=== PATIENT | male | born 1955 | race Caucasian/White ===

== ENCOUNTER 2024-10-06 02:39 | Emergency (ER) | payer MEDICARE, OTHER, SELFPAY ==
[2024-10-06] VITALS (7 sets, daily range): BP systolic 125–184; BP diastolic 75–84; PULSE 108–120; RESP 14–22; TEMP 36.5; O2SAT 94–99
--- NOTE | ~2024-10-06 | CT_ITS ---
Clinical Indication: Shortness of breath CT Scan of the Chest with Contrast: Technique: Contiguous sections were acquired throughout the chest after intravenous administration of 175 cc of Omnipaque 350. Dose reduction technique was used on this scan by utilizing automated expos ure control and iterative reconstruction technique. The dose-length product (DLP) was 426.31 mGy-cm. Findings: At the level of the thyroid cartilage/vocal cords, there is apparent soft tissue mass parti ally filling the trachea, near complete occlusion. Lesion measures approximately 2.4 x 2.0 cm in dalal sverse dimensions, and 4.1 cm in craniocaudal extent (axial images [id number], sagittal image 83 for exampl e). There is no evidence of any significant mediastinal, hilar or axillary lymphadenopathy. There is no f illing defect in the pulmonary arterial tree to suggest pulmonary embolus. There is no evidence of ao rtic dissection or aneurysm. There is no evidence of pleural or pericardial effusion. There is severe emphysema. No pulmonary nodule or consolidation seen. Images through the upper abdomen reveal large duodenal diverticulum. Possible diffuse hepatic steatos is. Impression: 2.4 x 2.0 x 4.1 cm soft tissue mass nearly completely occluding the trachea at the level of the thyro id cartilage/vocal cords, suspicious for malignancy. Direct inspection/tissue sampling advised. No evidence of pulmonary embolus, aortic dissection, or aortic aneurysm. Severe emphysema. No pulmonary nodule or consolidation. Reviewed, dictated and finalized at [facility]. Impression: 2.4 x 2.0 x 4.1 cm soft tissue mass nearly completely occluding the trachea at the level of the thyroid cartilage/vocal cords, suspicious for malignancy. Dire ct inspection/tissue sampling advised. No evidence of pulmonary embolus, aortic dissection, or aortic aneurysm. Severe emphysema. No pulmonary nodule or consolidation.
--- NOTE | ~2024-10-06 | XR_ITS ---
Portable chest x-ray Comparison: None Clinical History: Dyspnea Findings: COPD pattern of the lungs is present. No consolidation or pleural effusion evident. Cardi omediastinal silhouette is stable. Bones and soft tissues are unremarkable. Impression: COPD. Reviewed, dictated and finalized at location . Impression: COPD.
--- NOTE | ~2024-10-06 | CT_ITS ---
CT scan of the Neck Technique: 2.5 mm axial scans were obtained through the neck after intravenous administration of 175 cc Omnipaque 350. Coronal and sagittal reconstructions of the neck were obtained. Dose reduction tech nique was used on this scan by utilizing automated exposure control and iterative reconstruction tech nique. The dose-length product (DLP) was 448.71 mGy-cm. Clinical History: Shortness of breath Findings: At the level of the thyroid cartilage/vocal cords, there is a soft tissue mass largely fill ing the trachea with near complete occlusion, measuring approximately 2.5 2.1 x 4.0 cm in extent (axi al images 74-80). There is no evidence of any significant cervical lymphadenopathy. Several small, nonenlarged jugulo- digastric and posterior cervical lymph nodes are noted bilaterally. Parapharyngeal spaces appear norm al bilaterally. The parotid and submandibular glands appear normal. The thyroid gland appears normal. Images of the lung apices reveal severe emphysema. Impression: Laryngeal/tracheal soft tissue mass at the level of the thyroid cartilage/vocal cords, as detailed ab ove, nearly completely filling/occluding the trachea. This is suspicious for malignancy. Direct inspe ction/tissue sampling advised. Airway management would likely be of clinical concern. Reviewed, dictated and finalized at location . Impression: Laryngeal/tracheal soft tissue mass at the level of the thyroid cartilage/vocal cords, as detailed above, nearly completely filling/occluding the trachea. Thi s is suspicious for malignancy. Direct inspection/tissue sampling advised. Airw ay management would likely be of clinical concern.
--- NOTE | 2024-10-06 02:47 | ECG_ITS ---
Test Date: 2024-10-06 02:54:11 Measurements Intervals [place] Rate: 112 P: 0 VT: 0 QRS: 74 QRSD: 92 T: 82 QT: 299 QTc: 410 Interpretive Statements SINUS TACHYCARDIA INDETERMINATE AXIS SEPTAL MYOCARDIAL INFARCTION , OF INDETERMINATE AGE [40+ ms Q WAVE IN V1/V2] SI NONSPECIFIC ST AND T-WAVE ABNORMALITY ABNORMAL ECG Electronically Signed On 10-06-2024 12:25:41 CDT by Jensen Turk M.D.
[2024-10-06 02:58] LABS: Basophils Absolute Auto 0.1 K/mm3 (0.0-0.1); Basophils Percent Auto 0.7 % (0.2-1.2); Eosinophils Absolute Auto 0.1 K/mm3 (0-0.3); Eosinophils Percent Auto 0.9 % (0-4.4); Hematocrit 48.4 % (42.0-52.0); Hemoglobin 16.4 g/dL (14.0-18.0); Immature Granulocyte Absolute 0.04 K/mm3 (0.00-0.031); Immature Granulocyte Percent A 0.5 % (0-0.5); Immature Platelet Fraction Pct 2.9 % (0.9-11.2); Lymphocytes Absolute Auto 2.33 K/mm3 (0.9-3.2); Lymphocytes Percent Auto 31.1 % (18.3-44.2); Mean Corpuscular HGB Conc 33.9 g/dl (32-36); Mean Corpuscular Hemoglobin 30.5 pg (26-34); Monocytes Absolute Auto 0.6 K/mm3 (0.1-0.6); Monocytes Percent Auto 8.3 % (2.6-8.5); Neutrophils Absolute Auto 4.4 K/mm3 (1.3-6.7); Neutrophils Percent Auto 58.5 % (45.5-73.1); Platelet Count Result 129 k/mm3 (150-375); Red Blood Count 5.38 M/mm3 (4.6-6.20); Red Cell Distribution Width 14.2 % (11.5-14.5); White Blood Count 7.5 K/mm3 (4.5-10.0)
[2024-10-06] MEDS: methylPREDNISolone SOD SUCC 125 MG VIAL IV PUSH (03:01)
[2024-10-06 03:06] LABS: Alanine Aminotransferase 28 U/L (6-50); Albumin Level 4.2 g/dL (3.5-5.1); Alkaline Phosphatase 132 U/L (38-126); Anion Gap 10 mmol/L (4-12); Aspartate Amino Transferase 39 U/L (17-59); Bilirubin,Total 0.6 mg/dL (0.2-1.3); Blood Urea Nitrogen 9 mg/dL (9-20); Calcium 9.2 mg/dL (8.4-10.2); Carbon Dioxide 28 mmol/L (22-30); Chloride 91 mmol/L (98-107); Estimated CRCL calculation 78 ml/min; Estimated Glomerular Filt Rate > 60; Glucose 104 mg/dL (65-110); Potassium 3.9 mmol/L (3.4-5.0); Sodium 129 mmol/L (137-145)
[2024-10-06 03:07] LABS: Lactic Acid Reflex 1.4 mmol/L (0.7-2.0)
[2024-10-06] MEDS: IPRATROPIUM 0.5 MG/ALBUTEROL SULFATE 2.5 MG AMPUL.NEB 3 ML INHALATION (03:08)
[2024-10-06 03:22] LABS: INR 0.9; Prothrombin Time 12.7 Seconds (11.1-14.7)
[2024-10-06 03:23] LABS: Partial Thromboplastin Time 25.9 Seconds (22.3-36.8)
[2024-10-06 03:35] LABS: Magnesium 1.7 mg/dL (1.6-2.3)
[2024-10-06 03:41] LABS: Influenza A QL RT-PCR Negative (Negative); Influenza B QL RT-PCR Negative (Negative); RSV RNA, RT-PCR Negative (Negative); SARS-CoV-2 RNA PCR Negative (Negative)
[2024-10-06 03:43] LABS: Troponin I 0.015 ng/mL (0.000-0.034)
[2024-10-06 03:44] LABS: NT Pro B Type Natriuretic Pept 506 pg/mL (19.9-100)
--- NOTE | 2024-10-06 04:03 | ED_ITS ---
HPI - General Adult General Chief complaint: Shortness of Breath/Dyspnea Stated complaint: DIFFICULTY IN BREATHING Time Seen by Provider: 10/06/24 02:44 History of Present Illness HPI narrative: Patient 69-year-old gentleman who presents emergency department chief complaint of shortness of breath. Patient reports he has no prior history of any medical conditions reports that he does smoke cigarettes and reports that for some time probably several months he has been having increasing shortness of breath that he describes does not upper airway sound the patient reports that has been getting tighter and tighter to brief and reports that tonight he felt like he was going to stop breathing the patient reports that it feels more in his neck that the problem breathing is Related Data Allergies Allergy/AdvReac Type Severity Reaction Status Date / Time No Known Allergies Allergy Verified 10/06/24 03:01 Review of Systems 2 Review of Systems: A 10 system review of systems was completed on the patient and is negative except for what is stated in the HPI. Nursing and ancillary documentation was reviewed. Exam 2 Narrative: GENERAL: Well-appearing, well-nourished, and in no acute distress. HEAD: Normocephalic, atraumatic. EYES: PERRLA and EOMI. ENT: Nares clear, no rhinorrhea or epistaxis. Mucous membranes moist. NECK: Supple. CHEST: Upper airway stridor present. HEART: Regular rate and rhythm. No murmur heard. Normal peripheral pulses. ABDOMEN: Soft, nontender, nondistended, normal active bowel sounds. EXTREMITIES: Normal range of motion. No edema. SKIN: Warm, dry, no rash. NEURO: No focal deficits. Alert and oriented x3. PSYCH: Normal mood and affect. Course Vital Signs Vital signs: Vital Signs Pulse Rate 120 H 10/06/24 02:41 Respiratory Rate 18 10/06/24 02:41 Blood Pressure 184/84 H 10/06/24 02:41 Pulse Oximetry 99 10/06/24 02:41 Oxygen Delivery Room Air 10/06/24 02:41 Temperature 36.5 C 10/06/24 04:10 Pulse Rate 117 H 10/06/24 03:55 Respiratory Rate 20 10/06/24 03:55 Blood Pressure 148/77 H 10/06/24 03:55 Pulse Oximetry 96 10/06/24 03:55 Oxygen Delivery Room Air 10/06/24 02:48 Medical Decision Making MDM Narrative Medical decision making narrative: Differential diagnosis includes upper airway obstruction, pulmonary embolism, pneumonia, The patient was presenting with stridor given his prior history of smoking concern for upper airway mass was entertained. The patient was able tolerate laying flat CT scan of the soft tissue neck and also CTA of the chest was obtained no evidence of pulmonary embolism but there was evidence of a 3.8 by 2 cm mass with severe airway narrowing and local infiltration Case was discussed with your nose and throat at [facility] who recommended the patient be transferred to the emergency department Vital Signs Vital Signs: Vital Signs Pulse Rate 120 H 10/06/24 02:41 Respiratory Rate 18 10/06/24 02:41 Blood Pressure 184/84 H 10/06/24 02:41 Pulse Oximetry 99 10/06/24 02:41 Oxygen Delivery Room Air 10/06/24 02:41 Temperature 36.5 C 10/06/24 04:10 Pulse Rate 117 H 10/06/24 03:55 Respiratory Rate 20 10/06/24 03:55 Blood Pressure 148/77 H 10/06/24 03:55 Pulse Oximetry 96 10/06/24 03:55 Oxygen Delivery Room Air 10/06/24 02:48 Lab Data 10/06/24 02:51 10/06/24 02:51 Labs: Lab Results 10/06/24 10/06/24 10/06/24 Range/Units 02:51 02:59 04:26 WBC 7.5 (4.5-10.0) K/mm3 RBC 5.38 (4.6-6.20) M/mm3 Hgb 16.4 (14.0-18.0) g/dL Hct 48.4 (42.0-52.0) % MCV 90.0 (80-100) fl MCH 30.5 (26-34) pg MCHC 33.9 (32-36) g/dl RDW 14.2 (11.5-14.5) % Plt Count 129 L (150-375) k/mm3 MPV 9.0 (7.4-10.4) fl Immature Gran % (Auto) 0.5 (0-0.5) % Neut % (Auto) 58.5 (45.5-73.1) % Lymph % (Auto) 31.1 (18.3-44.2) % [place] % (Auto) 8.3 (2.6-8.5) % Eos % (Auto) 0.9 (0-4.4) % Baso % (Auto) 0.7 (0.2-1.2) % Lymph # (Auto) 2.33 (0.9-3.2) K/mm3 [place] # (Auto) 0.6 (0.1-0.6) K/mm3 Eos # (Auto) 0.1 (0-0.3) K/mm3 Baso # (Auto) 0.1 (0.0-0.1) K/mm3 Abs Immat Gran (auto) 0.04 H (0.00-0.031) K/mm3 Absolute Neuts (auto) 4.4 (1.3-6.7) K/mm3 Absolute Nucleated RBC 0.000 (0.0-0.012) K/mm3 Nucleated RBC % 0.0 (0.0-0.2) % % Immature Plt Fraction 2.9 (0.9-11.2) % PT 12.7 (11.1-14.7) Seconds INR 0.9 APTT 25.9 (22.3-36.8) Seconds Sodium 129 L (137-145) mmol/L Potassium 3.9 (3.4-5.0) mmol/L Chloride 91 L (98-107) mmol/L Carbon Dioxide 28 (22-30) mmol/L Anion Gap 10 (4-12) mmol/L BUN 9 (9-20) mg/dL Creatinine 0.77 (0.7-1.3) mg/dL Estim Creat Clear Calc 78 ml/min Estimated GFR > 60 (59 - ) Glucose 104 (65-110) mg/dL Lactic Acid 1.4 (0.7-2.0) mmol/L Calcium 9.2 (8.4-10.2) mg/dL Magnesium 1.7 (1.6-2.3) mg/dL Total Bilirubin 0.6 (0.2-1.3) mg/dL AST 39 (17-59) U/L ALT 28 (6-50) U/L Alkaline Phosphatase 132 H (38-126) U/L Troponin I 0.015 (0.000-0.034) ng/mL NT-Pro-B Natriuret Pep 506 H (19.9-100) pg/mL Total Protein 9.0 H (6.3-8.2) g/dL Albumin 4.2 (3.5-5.1) g/dL Procalcitonin 0.1 ng/mL Urine Color Pending Urine Appearance Pending Urine pH Pending Ur Specific [place] Pending Urine Protein Pending Urine Glucose (UA) Pending Urine Ketones Pending Ur Blood (Man) Pending Urine Nitrate Pending Urine Bilirubin Pending Urine Urobilinogen Pending Leukocyte Esterase Rfl Pending Influenza A (RT-PCR) Negative (Negative) Influenza B (RT-PCR) Negative (Negative) RSV (RT-PCR) Negative (Negative) SARS-CoV-2 RNA (RT-PCR) Negative (Negative) Critical Care Time Critical Care Time Critical Care Time: Yes Total Critical Care Time: 35 Discharge Plan Discharge Clinical Impression: Laryngeal mass Patient Disposition: Acute Care Hospital Condition: Stable Patient Language: Indonesian Follow-up/Referrals: PHYSICIAN,[employer]IE [employer] PERFORMER [Primary Care Provider] -
[2024-10-06 04:07] LABS: Procalcitonin 0.1 ng/mL
[2024-10-06 04:51] LABS: Add Urine Microscopic? YES; Appearance Urine Clear (Clear); Bacteria Urine None Seen /hpf; Bilirubin Urine Negative (Negative); Blood Urine 1+ (Negative); Color Urine Yellow (Yellow); Glucose Urine UA Negative (Negative); Ketones Urine Negative (Negative); Leukocyte Esterase Ur Negative LEU/UL (Negative); Need Manual Microscopic Reviewed; Nitrate Urine Negative (Negative); Non Pathogenic Casts 0-2; Protein Urine 1+ mg/dL (Negative); Specific Grav Ur > 1.045 (1.001-1.035); Squamous Epithelial Cell Urine None Seen /hpf (Few); WBC Urine 0-5 /hpf (0-3); pH Urine 5.5 (5.0-9.0)
== END 2024-10-06 05:02 | disposition short-term general hospital (02) ==
PROVIDERS: Emergency Provider Emergency Medicine
DX: J38.7 Other diseases of larynx (principal); Z20.822 Contact with and (suspected) exposure to COVID-19; F17.210 Nicotine dependence, cigarettes, uncomplicated; R94.31 Abnormal electrocardiogram [ECG] [EKG]; R00.0 Tachycardia, unspecified
CPT/HCPCS: 36415; 70491; 71045; 71275; 80053; 81001; 83605; 83735; 83880; 84145; 84484; 85025; 85055; 85610; 85730; 87637; 93005; 94640; 96374; 99285; J2919; Q9967